=== PATIENT | female | born 1985 | race Caucasian/White ===

== ENCOUNTER 2017-03-28 12:34 | Inpatient (IN) | payer OTHER ==
[~2017-03-28] VITALS: Ht 165.1 cm; Wt 97.2 kg
--- NOTE | ~2017-03-28 | EEG ---
[facility] [place] [address] ELECTROENCEPHALOGRAM Name: ELVA SMITH Room #: 212-P [facility] IN M.R.#: [id number] Admission: 03/28/17 Attend Phys: Jj Madrid MD Discharge: 03/29/17 Date of : 85 Report #: [id number] THIS REPORT FOR: //name// CC: MARIE Madrid DATE OF SERVICE: 03/28/2017 DATE OF SERVICE: 03/28/2017. INDICATIONS FOR PROCEDURE: This patient is being evaluated for the possibility of seizure. DESCRIPTION OF PROCEDURE AND FINDINGS: EEG was done by placing the electrodes by standard 10-20 system of electrode placement. Both referential and sequential montages were used for recording. Background activity in this patient's EEG is about 10 Hz and 40 microvolts. A lot of artifact is present. The patient goes to sleep and a large portion of this EEG was obtained when the patient was asleep. That is associated with bilaterally symmetrical slowing, sleep spindle and vertex sharp waves. Throughout the record, no active epileptiform activity was noticed. IMPRESSION: This patient's EEG does not demonstrate any clear-cut epileptiform activity. It might be mentioned that EEG can be normal in a patient with seizure disorder. Thank you very much for this referral. <ELECTRONICALLY SIGNED> By: Deejay Raymundo MD 03/31/17 0639 [id number] MD bear Walker
--- NOTE | ~2017-03-28 | H ---
[facility] [place] [address] HISTORY AND PHYSICAL Name: ELVA SMITH Room #: 212-P ADM IN M.R.#: [id number] Admission: 03/28/17 Attend Phys: Jj Madrid MD Discharge: Date of : 85 Report #: [id number] THIS REPORT FOR: //name// CC: MARIE Madrid MD DATE OF SERVICE: 03/28/2017 CHIEF COMPLAINT: Seizure. HISTORY OF PRESENT ILLNESS: The patient is a 32-year-old female with history of Ilana thyroiditis, history of one episode of seizure 4 years ago, presented to the Emergency Room after an episode of seizure. The patient is unable to recollect the event. According to the ER physician, the patient has been described as seizure-like activity with her arms flopping around left and right. Then she became unresponsive and rolled back her head. The patient is awake and alert now. She complains of mild headache. She denies any focal numbness or weakness of the extremity. No fever or chills, no visual disturbance. PAST MEDICAL HISTORY: She had a seizure 4 years ago. She was treated with Keppra at that point and apparently she had headache and Keppra was discontinued. She has not had any seizure-like activity until today. No history of any hypertension, no coronary artery disease, history of migraine headache in the past, history of Ilana's thyroiditis. PAST SURGICAL HISTORY: Significant for lumpectomy in the left breast and partial hysterectomy. FAMILY HISTORY: Significant for hypertension. No history of any diabetes. The patient's father has had . REVIEW OF SYSTEMS: CONSTITUTIONAL: No fever or chills. The patient complains of a headache. EYES: No change in vision. THROAT: Denies any sore throat. CARDIOVASCULAR: No chest pain, dizziness, palpitations. RESPIRATORY: No cough or expectoration. GASTROINTESTINAL: No nausea or vomiting. GENITOURINARY: No dysuria, hematuria. NEUROLOGIC: No focal numbness or weakness of the extremity. PSYCHIATRIC: No anxiety. The 12-point review of system is negative other than the positive and negative dictated in the history of present illness in the review of systems. [address] [address] HISTORY AND PHYSICAL Name: ELVA SMITH Room #: 212-P [facility] IN .R.#: [id number] Admission: 03/28/17 Attend Phys: Jj Madrid MD Discharge: Date of : 85 Report #: [id number] PHYSICAL EXAMINATION: VITAL SIGNS: Blood pressure 127/70, heart rate of 60 per minute, afebrile. GENERAL: The patient is awake and alert, not in acute respiratory distress. EYES: Pupils equal, reactive to light, nonicteric, conjunctivae. NECK: Supple, no JVD, no bruit, no lymphadenopathy. CARDIOVASCULAR SYSTEM: S1, S2, negative S3, no murmur. CHEST: Bilateral air entry present. Clear on auscultation. ABDOMEN: Soft, bowel sounds present, no mass, no organomegaly, no tenderness. PERIPHERY: No pedal edema. No calf tenderness. Dorsalis pedis 1+. NEUROLOGICAL: No focal deficit noted. Pupils equal, reactive to light. Extraocular movements intact. No facial asymmetry noted. LABORATORY DATA: Reviewed. White count is 11.2, normal hemoglobin, hematocrit and platelets. Chemistry showed a BUN of 11 and creatinine of 0.9. Serum test is negative. TSH is normal. CT of the brain showed no acute abnormality. ASSESSMENT AND PLAN: 1. Seizure. The patient will be placed on seizure precaution. We will contact Dr. Gloria regarding antiepileptic medication. I have also ordered p.r.n. Ativan for seizure. She will be placed on seizure precaution. I have also ordered an EEG and MRI and MRA of the brain. 2. Deep venous thrombosis prophylaxis. She will be on SCD on the leg for DVT prophylaxis. Treatment plan has been explained to the patient in detail. <ELECTRONICALLY SIGNED> By: Jj Madrid MD 03/29/17 1314 [id number] Jj Madrid MD /nt
[~2017-03-28 12:34] MED LIST: BENADRYL25 MG; DERMOPLAST SPRA56 ML; IBUPROFEN 400400 M1 PO; IBUPROFEN 800800 M1 PO; KEPPRA 500 MG500 M1 PO; NOHOMEMEDICATIONS; NORCO 5-325 TA1 EACH PO; PHENERGAN 25 MG25 M1 PO; PHENTERMINE HCL30 MG; PREDNISONE 20 M20 MG PO; PRENATAL PO; TUCKS MEDICATE1 EAC1; TYLENOL EXTRA500 MG PO; VISTARIL 25 MG25 M1 PO; ZANTAC 150MG T150 MG PO; ZEGERID 20 MG1 EACH PO; ZEGERID OTC 201 EACH PO
[2017-03-28 12:37] VITALS: BP 129/90
[2017-03-28 14:33] LABS: ABSOLUTE NEUTROPHILS 8.6 thou/uL (1.4-8.2); BASOPHILS 0.4 % (0.0-2.0); EOSINOPHILS 1.5 % (0.0-3.0); HEMATOCRIT 42.1 % (37.0-47.0); HEMOGLOBIN 13.9 gm/dL (12.0-15.0); LYMPHOCYTES 15.6 % (24.0-44.0); MCH 29.3 pg (26.0-34.0); MCV 88.7 fL (80.0-100.0); MONOCYTES 6.6 % (1.0-8.0); PLATELET COUNT 249 thou/uL (150-400); POLYS 75.9 % (36.0-66.0); RBC 4.74 mil/uL (4.20-5.00); WBC 11.3 thou/uL (4.0-11.0)
[2017-03-28 14:36] LABS: MANUAL DIFF NO
[2017-03-28 14:37] LABS: URINE BILIRUBIN NEGATIVE (Negative); URINE BLOOD NEGATIVE (Negative); URINE COLOR YELLOW; URINE GLUCOSE-RANDOM* NEGATIVE (Negative); URINE KETONES NEGATIVE (Negative); URINE LEUKOCYTES-REFLEX NEGATIVE (Negative); URINE PROTEIN (DIPSTICK) NEGATIVE (Negative); URINE UROBILINOGEN 0.2 E.U./dl (0.2-1.0)
[2017-03-28 14:40] LABS: CALCIUM 8.9 mg/dL (8.5-10.1); CREATININE 0.9 mg/dL (0.6-1.0); POTASSIUM 4.8 mmol/L (3.5-5.1)
[2017-03-28 14:45] LABS: AMP/METHAMP Negative (Negative); BARBITURATES Negative (Negative); BENZODIAZEPINES Negative (Negative); COCAINE Negative (Negative); METHADONE Negative (Negative); OPIATES Negative (Negative); PCP Negative (Negative); THC POSITIVE (Negative)
[2017-03-28 16:28] VITALS: BP 127/70
[2017-03-28 17:00] VITALS: BP 134/83
[2017-03-28 20:41] VITALS: BP 120/79
[2017-03-29 00:02] VITALS: BP 117/76
[2017-03-29 05:01] VITALS: BP 120/71
[2017-03-29 11:45] VITALS: BP 127/73
[2017-03-29] MEDS ORDERED: TEGRETOL200 MG PO (14:26)
[2017-03-29 14:56] VITALS: BP 127/73
[2017-03-29 15:12] VITALS: BP 127/73
== END 2017-03-29 15:15 | disposition home or self-care (01) | DRG 101 ==
LOC: ER 12:34 → 2N 15:13 → EROBS 15:13 → 2N 16:17
PROVIDERS: Emergency Medicine
DX: R56.9 Unspecified convulsions (principal); G43.909 Migraine, unspecified, not intractable, without status migrainosus; E06.3 Autoimmune thyroiditis; Z88.8 Allergy status to other drugs, medicaments and biological substances; Z79.899 Other long term (current) drug therapy; Z90.711 Acquired absence of uterus with remaining cervical stump; Z82.49 Family history of ischemic heart disease and other diseases of the circulatory system; Z90.49 Acquired absence of other specified parts of digestive tract; Z87.891 Personal history of nicotine dependence
CPT/HCPCS: 10081